=== PATIENT | female | born 1950 | race Caucasian/White ===

== ENCOUNTER 2023-11-28 08:11 | Outpatient (AMB) | payer MEDICARE, BC, SELFPAY ==
[2023-11-28 08:21] VITALS: BP 106/60; PULSE 80; TEMP 36.6; O2SAT 97; BMI 25.4
--- NOTE | 2023-11-28 08:21 | AM.OFFWIN_ITS ---
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 Reports that she was taking down her Xmas tree when the pain started. She has been using Heat and Acetaminophen with minimal relief. Denies numbness or tingling to lower extremities. Denies urinary or bowel problems. She is able to walk and bend with no pain. Denies any injury or trauma. Denies previous surgeries on back. PFSH Social History Patient Tobacco Use Status: Never used Tobacco Review of Systems Const All systems reviewed & are unremarkable except as noted in HPI and below Physical Exam Vital Signs: Last Vital Signs Temp 97.8 F 11/28/23 08:21 Pulse 80 11/28/23 08:21 BP 106/60 11/28/23 08:21 Pulse Ox 97 11/28/23 08:21 Oxygen Delivery Method Room Air 11/28/23 08:21 BMI result Body Mass Index 25.4 General: Yes no CVA tenderness Back/Spine/Pelvis Back: no CVA tenderness, No erythema and No warmth Cervical Spine: normal cervical lordosis and cervical ROM normal Thoracic/Lumbar Spine: thoracic and lumbar spine normal to inspection and thoraco-lumbar ROM normal Skin General skin exam: no rashes or lesions noted Assessment & Plan Assessment & Plan (1) Mid-back pain, acute: Code(s): M54.9 - Dorsalgia, unspecified Plan: - Continue with Heat and Ice - Rest - Acetaminophen for pain relief Medications: New acetaminophen 1,000 mg (2 x 500 mg) PO Q6H PRN 30 caps 0RF pain (scale score 4- 6) M54.9 - Dorsalgia, unspecified tizanidine (Zanaflex) 4 mg PO BEDTIME PRN 20 caps 0RF muscle spasticity M54.9 - Dorsalgia, unspecified Coding Level of Care Code New Pt Level 3 (29028) Diagnoses Mid-back pain, acute M54.9 Time Spent (min) 15
== END 2023-11-28 09:13 | disposition home or self-care (01) ==
PROVIDERS: PCP Physician Assistant Medical; Visit Provider Nurse Practitioner Family
DX: M54.9 Dorsalgia, unspecified (principal)
CPT/HCPCS: 99203

== ENCOUNTER 2024-05-05 08:10 | Outpatient (AMB) | payer MEDICARE, BC, SELFPAY ==
[2024-05-05 08:15] VITALS: BP 132/80; PULSE 83; TEMP 36.6; O2SAT 98
--- NOTE | 2024-05-05 08:15 | MHC.OFFWIV ---
Intake Vital Signs 05/05/24 08:15 Height 5 ft 7 in BP 132/80 Blood Pressure Location Lt brachial Position Sitting Pulse 83 Pulse Source Pulse Oximeter Temp 97.8 F Temp Source Oral Pulse Oximetry (%) 98 Oxygen Delivery Method Room Air Intake Visit Reasons: Right hip pain Intake Note: pt is here for right hip pain goes down to knee, patient denies injury Patient Tobacco Use Status: Never used Tobacco Allergies Penicillins Allergy (Mild, Verified 05/05/24 08:15) Hives Do you need a note to return to daycare/school/sports/work: No HPI HPI Comments History of Present Illness Details Patient presents to the walk-in today for sick visit Complaining of 4 days of right hip pain Denies fall, trauma injury Exacerbated by walking moving. Pain radiates to the groin with rotation of the right hip Has been taking Tylenol without improvement of her symptoms Denies fever, chills, weakness, dizziness, nausea, vomiting, diarrhea PFSH Social History Patient Tobacco Use Status: Never used Tobacco Review of Systems Const All systems reviewed & are unremarkable except as noted in HPI and below Physical Exam Vital Signs: Last Vital Signs Temp 97.8 F 05/05/24 08:15 Pulse 83 05/05/24 08:15 BP 132/80 05/05/24 08:15 Pulse Ox 98 05/05/24 08:15 Oxygen Delivery Method Room Air 05/05/24 08:15 General: awake, alert, oriented. Answers questions appropriately. Fully engaged in examination. Skin: warm, dry, intact HEENT: Normocephalic. Hearing intact. Cardiac: External chest normal in appearance. Respiratory: No cough, audible wheezing or stridor. Abdomen: without gross distension. MS: No obvious swelling or deformities. Able to transition from sit to stand unassisted. Ambulates with bilaterally normal heel strike and toe off Pain with internal/external rotation of the right hip Nontender over PSIS Neurological: Oriented to person, place, time and situation. Thought process intact. No gait abnormalities appreciated. Psychiatric: Appropriate mood and affect. Good judgment and insight. Results Reviewed Results Reviewed: Right hip x-ray ordered and independently reviewed: no fracture or dislocation Assessment & Plan Assessment & Plan (1) Right hip pain: Code(s): M25.551 - Pain in right hip Plan X-ray ordered and independently reviewed: No Fracture or dislocation Rest, ice, heat as tolerated Naproxen 250 mg p.o. b.i.d. as needed. Patient advised on cautions for use. Referral placed for Orthopedics Follow up with PCP or return here for any new or worsening symptoms Orders: Orders XR hip RT min 2V Today M25.551 - Pain in right hip Medications: New naproxen Take with food. Do not take with any other nonsteroidal anti-inflammatory medications. 250 mg PO BID PRN 20 tabs 0RF pain Coding Level of Care Code Est Pt Level 4 (34028) Diagnoses Right hip pain M25.551
== END 2024-05-05 09:56 | disposition home or self-care (01) ==
PROVIDERS: PCP Physician Assistant Medical; Visit Provider Registered Nurse Emergency
DX: M25.551 Pain in right hip (principal)
CPT/HCPCS: 99214

== ENCOUNTER 2024-05-05 08:31 | Outpatient (REF) | payer MEDICARE, BC, SELFPAY ==
--- NOTE | ~2024-05-05 | XR_ITS ---
EXAMINATION: XR HIP, RIGHT CLINICAL INFORMATION: Right hip pain. COMPARISON: None available. TECHNIQUE: Two views of the right hip. FINDINGS: Alignment is anatomic. Hip joint space is maintained. No displaced fracture or dislocation. Vascular calcifications are present. XR/XR hip RT min 2V IMPRESSION: No acute abnormality.
== END 2024-05-05 08:32 | disposition home or self-care (01) ==
LOC: HO.HMGCX 08:31
PROVIDERS: Visit Provider Registered Nurse Emergency
DX: M25.551 Pain in right hip (principal)
CPT/HCPCS: 73502